=== PATIENT | male | born 1960 | race Caucasian/White ===

== ENCOUNTER 2019-02-26 11:22 | Emergency (ER) | payer BC ==
[~2019-02-26] VITALS: Ht 167.6 cm; Wt 75.7 kg
[2019-02-26] MEDS ORDERED: MORPHINE 4 MG/ML 1ML VIAL/SYRINGE (J2270) IV ONE (12:45)
[2019-02-26] MEDS ORDERED: CLINDAMYCIN 600 MG in IV 1 EA IV ONE (12:45)
[2019-02-26] MEDS ORDERED: VANCOMYCIN HCL 1,000 MG, VIAL MATE ADAPTER 1 EACH in D5W 250 ML IV ONE (12:45)
[2019-02-26] MEDS ORDERED: CLEO150C PO (12:53)
[2019-02-26] MEDS ORDERED: PERC5TAB12 PO (12:58)
--- NOTE | 2019-02-26 13:44 | REP ---
REASON: Trauma. There is a transverse fracture through the tuft of the distal phalanx of the 2nd digit with associated soft tissue injury. Electronically Signed by Juan Strong DO 02/26/2019 02:22 P
[2019-02-26 14:08] VITALS: BP 160/112
--- NOTE | 2019-02-26 14:27 | ED PDOC ---
Post-Departure Follow-Up ED progress note. Manual BP 160/112. Patient has no signs or symptoms of end-o rgan damage. Suggested to patient pain control and recheck blood pressure or trial of oral anti-hypertensive in ED. Explained to patient risk of stroke/heart attack. Patient declines any further medication treatment in the ED and verbalizes understanding of importance of follow up with primary care within 1 week for blood pressure recheck and management. JANAK MULLIGAN MD Feb 26, 2019 14:27
== END 2019-02-26 14:52 | disposition home or self-care (01) ==
LOC: M ED 11:22
DX: S62.660A Nondisplaced fracture of distal phalanx of right index finger, initial encounter for closed fracture (principal); S61.300A Unspecified open wound of right index finger with damage to nail, initial encounter; W23.0XXA Caught, crushed, jammed, or pinched between moving objects, initial encounter; Y92.096 Garden or yard of other non-institutional residence as the place of occurrence of the external cause; Z87.891 Personal history of nicotine dependence; Z88.0 Allergy status to penicillin
CPT/HCPCS: 73130; 96365; 96366; 96368; 99284; J3370

== ENCOUNTER → 2024-02-15 | Outpatient (REF) | payer OTHER ==
[~2024-02-15] MED LIST: CLEO150C PO; PERC5TAB12 PO
[2024-02-16 11:24] LABS: HEPATITIS B SURFACE ANTIGEN NEGATIVE (NEGATIVE)
[2024-02-16 11:45] LABS: HEPATITIS B CORE ANTIBODY IGM NEGATIVE (NEGATIVE); HEPATITIS C VIRUS ABY INDEX < 0.02 INDEX (<0.8)
== END ==
LOC: M LAB REF 16:47
PROVIDERS: ATTEND Internal Medicine
DX: L81.8 Other specified disorders of pigmentation (principal)

== ENCOUNTER → 2024-06-16 | Outpatient (CLI) | payer OTHER | LOC: M WUC 11:08 | PROVIDERS: ATTEND Internal Medicine | DX: R05.9 Cough, unspecified (principal); Z87.81 Personal history of (healed) traumatic fracture ==